=== PATIENT | female | born 1980 | race Caucasian/White ===

== ENCOUNTER 2017-03-07 16:22 | Emergency (ER) | payer BC ==
[~2017-03-07] VITALS: Ht 162.6 cm; Wt 93.0 kg
[2017-03-07] MEDS ORDERED: IV NORMAL SALINE 1000ML BAG 1,000 ML IV ONE (16:30)
--- NOTE | 2017-03-07 16:34 | PHYS DOC ---
Past Medical History Past Medical History: Anxiety, Migraines, Other Additional Past Medical Histor: PVCs, PSORIASIS Past Surgical History: Cholecystectomy, Hysterectomy, Other Additional Past Surgical Histo: CARDIAC ABLATION Alcohol Use: None Drug Use: None Adult General Chief Complaint Chief Complaint: RAPID HEART RATE [facility] HPI Patient is a 36 year old female with a recent history of ablation for rapid heart rates presents today with complaints of shortness of air and tachycardia as well as perioral numbness and numbness in bilateral upper extremities. Patient states currently she isn't not on any medications other than aspirin. Patient denies any new swelling or pain in the lower extremities. No history of trauma. No recent illnesses. Patient denies chest pain at this time. Pt concern that symptoms may be related to recent aspirin use that she stopped taking on saturday. Review of Systems Review of Systems Constitutional: Denies fever or chills [] Eyes: Denies change in visual acuity, redness, or eye pain [] HENT: Denies nasal congestion or sore throat [] Respiratory: Denies cough or shortness of breath [] Cardiovascular: No additional information not addressed in HPI [] GI: Denies abdominal pain, nausea, vomiting, bloody stools or diarrhea [] : Denies dysuria or hematuria [] Musculoskeletal: Denies back pain or joint pain [] Integument: Denies rash or skin lesions [] Neurologic: Denies headache, focal weakness or sensory changes [] Endocrine: Denies polyuria or polydipsia [] Current Medications Current Medications Current Medications Medications (Trade) Dose Ordered Sig/Maria R Start Time Stop Time Status Last Admin Dose Admin Lorazepam (Ativan) 2 mg STK-MED ONCE 03/07/17 16:42 03/07/17 16:43 DC Sodium Chloride 1,000 ml @ 1,000 mls/hr 1X ONCE 03/07/17 16:30 03/07/17 17:29 DC 03/07/17 16:33 1,000 MLS/HR Allergies Allergies Allergies Coded Allergies Type Severity Reaction Last Updated Verified Penicillins Allergy Mild HIVES 03/07/17 Yes Sulfa (Sulfonamide Antibiotics) Allergy Mild HIVES 03/07/17 Yes NSAIDS (Non-Steroidal Anti-Inflamma Adverse Reaction Unknown BACK PAIN Yes Physical Exam Physical Exam Constitutional: Well developed, well nourished, no acute distress, non-toxic appearance. Anxious HENT: Normocephalic, atraumatic, oropharynx moist, no oral exudates, nose normal. [] Eyes: EOMI, conjunctiva normal, no discharge. [] Neck: Normal range of motion, no tenderness, supple, no stridor. [] CardiovasculaTachycardia with equal pulses and normal perfusion, no murmur [] Lungs & Thorax: Bilateral breath sounds clear to auscultation, no tachpnea, no wheezing/rhonchi/rales Abdomen: Bowel sounds normal, soft, no tenderness, no masses, no pulsatile masses. [] Skin: Warm, dry, chronic psoriasis in LE Back:Normal ROM Extremities: No tenderness, no cyanosis, no signs of DVT, ROM intact, no edema. [] Neurologic: Alert and oriented X 3, normal motor function, normal speech, no focal deficits noted. [] Psychologic: Affect normal, judgement normal, mood normal. Anxious Current Patient Data Vital Signs Vital Signs Date Time Temp Pulse Resp B/P (MAP) Pulse Ox O2 Delivery O2 Flow Rate FiO2 03/07/17 18:08 96 18 119/77 (91) 100 Room Air 03/07/17 16:25 98.9 98.9 Lab Values Laboratory Tests Test 03/07/17 16:42 03/07/17 16:55 03/07/17 17:14 Glucose (Fingerstick) 96 mg/dL (70-99) Sodium Level 143 mmol/L (136-145) Potassium Level 3.4 mmol/L (3.5-5.1) L Chloride Level 109 mmol/L (98-107) H Carbon Dioxide Level 20 mmol/L (21-32) L Anion Gap 14 (6-14) Blood Urea Nitrogen 11 mg/dL (7-20) Creatinine 0.9 mg/dL (0.6-1.0) Estimated GFR (Cockcroft-Gault) 71.7 Glucose Level 116 mg/dL (70-99) H Calcium Level 8.5 mg/dL (8.5-10.1) Troponin I Quantitative < 0.017 ng/mL (0.000-0.055) KO-Huq-W-Type Natriuretic Peptide 43 pg/mL (0-124) White Blood Count 8.6 x10^3/uL (4.0-11.0) Red Blood Count 4.07 x10^6/uL (3.50-5.40) Hemoglobin 12.7 g/dL (12.0-15.5) Hematocrit 36.3 % (36.0-47.0) Mean Corpuscular Volume 89 fL (79-100) Mean Corpuscular Hemoglobin 31 pg (25-35) Mean Corpuscular Hemoglobin Concent 35 g/dL (31-37) Red Cell Distribution Width 12.6 % (11.5-14.5) Platelet Count 254 x10^3/uL (140-400) Neutrophils (%) (Auto) 83 % (31-73) H Lymphocytes (%) (Auto) 13 % (24-48) L Monocytes (%) (Auto) 3 % (0-9) Eosinophils (%) (Auto) 1 % (0-3) Basophils (%) (Auto) 0 % (0-3) Neutrophils # (Auto) 7.1 x10^3uL (1.8-7.7) Lymphocytes # (Auto) 1.1 x10^3/uL (1.0-4.8) Monocytes # (Auto) 0.3 x10^3/uL (0.0-1.1) Eosinophils # (Auto) 0.1 x10^3/uL (0.0-0.7) Basophils # (Auto) 0.0 x10^3/uL (0.0-0.2) D-Dimer (Astrid) < 0.27 ug/mlFEU Serum Test, Qualitative Negative (NEG) Laboratory Tests 03/07/17 17:14 Laboratory Tests 03/07/17 16:55 EKG EKG 1624 sinus tachycardia, 145, no STEMI [] Radiology/Procedures Radiology/Procedures no acute disease[] Course & Med Decision Making Course & Med Decision Making Pertinent Labs and Imaging studies reviewed. (See chart for details) 1745 pt HR [address] change on monitor,this after ativan. 1819 pt feels somewhat improved. HR [address] change on monitor. No signs of anaphylaxis or PE still By the time of discharge the patient appears to be greatly improved. she is now not displaying anxiety symptoms. Other then the initial tachycardia the patients exam was unremarkable. My suspicion for this being an event having been triggered by a vascular,cardiac or pulmonary event is very low given the response to treatment, the lack of significant findings on labs and the paucity of abnormal findings on physical exam. Patients concern regarding the aspirin is noted but I do not find that the patient is having an anaphylactic episode or severe allergic episode. Patient is agreeable for recheck and re-evaluation by pcp in one day. Strict return precautions provided. [] Dragon Disclaimer Dragon Disclaimer This electronic medical record was generated, in whole or in part, using a voice recognition dictation system. Departure Departure Impression: Primary Impression: Tachycardia Additional Impressions: Dyspnea, unspecified Anxiety Disposition: 01 HOME, SELF-CARE Condition: IMPROVED Referrals: MALIKA LOVE MD (PCP) please follow up with your pcp in one day for recheck and re-evaluation and discussion of this ED visit. If your symptoms return or worsen or new concerning symptoms develop return to the ED immediately Patient Instructions: Anxiety and Panic Attacks, Ulob-ed-Rngs, Nonspecific Tachycardia, Shortness of Breath, Awgi-ed-Upew Problem Qualifiers Wm STEINER MD Mar 07, 2017 16:34
--- NOTE | 2017-03-07 16:39 | EKG ---
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
--- NOTE | 2017-03-07 16:59 | RAD ---
AP portable chest radiograph 03/07/2017 Clinical History: Tachycardia since earlier today with shortness of breath. An AP portable erect digital radiograph of the chest was obtained. No previous studies are available for comparison. The cardiac and mediastinal silhouettes within normal limits in size and configuration. No acute pulmonary infiltrate is seen. No pleural effusion or pneumothorax is noted. The osseous structures are grossly intact. Impression: No acute abnormality is seen.
[2017-03-07 17:16] LABS: CALCIUM 8.5 mg/dL (8.5-10.1); CREATININE 0.9 mg/dL (0.6-1.0); GFR 71.7; POTASSIUM 3.4 mmol/L (3.5-5.1)
[2017-03-07 17:18] LABS: BASO % 0 % (0-3); EOS % 1 % (0-3); HEMATOCRIT 36.3 % (36.0-47.0); HEMOGLOBIN 12.7 g/dL (12.0-15.5); LYMPH # 1.1 x10^3/uL (1.0-4.8); LYMPH % 13 % (24-48); MEAN CORPUSCULAR HEMOGLOBIN 31 pg (25-35); MEAN CORPUSCULAR HGB CONC 35 g/dL (31-37); MEAN CORPUSCULAR VOLUME 89 fL (79-100); MONO % 3 % (0-9); NEUT % 83 % (31-73); PLATELET COUNT 254 x10^3/uL (140-400); RED BLOOD COUNT 4.07 x10^6/uL (3.50-5.40); RED CELL DISTRIBUTION WIDTH 12.6 % (11.5-14.5); WHITE BLOOD COUNT 8.6 x10^3/uL (4.0-11.0)
[2017-03-07 17:34] LABS: NEG OBC SER NEG; POS OBC SER POS
[2017-03-07 18:08] VITALS: BP 119/77
== END 2017-03-07 18:40 | disposition home or self-care (01) ==
LOC: ER 16:22
DX: R00.0 Tachycardia, unspecified (principal); R06.02 Shortness of breath; R06.00 Dyspnea, unspecified; F41.9 Anxiety disorder, unspecified; R20.0 Anesthesia of skin; L40.9 Psoriasis, unspecified; G43.909 Migraine, unspecified, not intractable, without status migrainosus; I49.3 Ventricular premature depolarization; Z88.2 Allergy status to sulfonamides; Z88.0 Allergy status to penicillin; Z88.8 Allergy status to other drugs, medicaments and biological substances
CPT/HCPCS: 36415; 71010; 80048; 82962; 83880; 84484; 84703; 85025; 85379; 93005; 96361; 96374; 99285; J2060; J7030